=== PATIENT | female | born 1960 | race Caucasian/White ===

== ENCOUNTER → 2017-03-30 | Outpatient (CLI) | payer BC ==
[~2017-03-30] MED LIST: LISI-14 PO
--- NOTE | 2017-03-30 12:44 | DI ---
Indication: ITS.REASON: S83.206A MENISCUS TEAR, CURRENT INJURY, RIGHT KNEE PROCEDURE: MRI KNEE RIGHT W/O CONTRAST: Encounter: Initial Comparison: None Technique: Multiplanar multisequence MR imaging of the right knee was performed without contrast. Findings: Macerated degenerative tear of the lateral meniscus. Medial meniscus appears intact. The ACL and PCL are normal. The MCL and lateral collateral ligament complex are intact. The extensor mechanism is normal. No acute fracture. Subchondral edema in the lateral femoral condyle and lateral tibial plateau. Remaining bone marrow signal intensity is normal. The cartilage of the medial compartment is maintained. Lateral compartment cartilage shows areas of full-thickness loss. Patellofemoral compartment cartilage is intact. Small joint effusion. Moderate-sized Carson's cyst. Muscular signal intensity shows mild edema within the lateral gastrocnemius head. Impression: Degenerative lateral meniscal tear. .
== END ==
LOC: IMA 09:26
PROVIDERS: ATTEND Family Medicine
DX: M23.200 Derangement of unspecified lateral meniscus due to old tear or injury, right knee (principal); M25.461 Effusion, right knee; M71.21 Synovial cyst of popliteal space [Baker], right knee; Z91.81 History of falling

== ENCOUNTER → 2017-04-06 | Outpatient (CLI) | payer BC ==
--- NOTE | 2017-04-06 10:04 | DI ---
INDICATION: ITS.REASON: Z01.89 PRE-OP EXAM PROCEDURE: CHEST 2-VIEWS UPRIGHT (PA \T\ LAT) Encounter: Initial COMPARISON: None FINDINGS: The lungs are clear without evidence of focal abnormal airspace opacity. There is no pleural effusion or pneumothorax. The heart size, mediastinal contours and pulmonary vascularity are within normal limits. There is no significant skeletal abnormality. Minimal marginal hypertrophic spurring anteriorly. IMPRESSION: No acute cardiopulmonary disease. .
[2017-04-06 10:23] LABS: BASOPHILS # (AUTO) 0.1 T/MM3 (0-0.2); BASOPHILS % (AUTO) 0.6 % (0-2); EOSINOPHILS # (AUTO) 0.1 T/MM3 (0-0.5); EOSINOPHILS % (AUTO) 1.5 % (0-4); HCT - HEMATOCRIT 41.5 % (36-46); HGB - HEMOGLOBIN 13.8 GM/DL (12-16); IMMATURE GRANULOCYTE # (AUTO) 0.01 T/MM3 (0.00-0.03); IMMATURE GRANULOCYTE % (AUTO) 0.1 % (0.0-0.5); LYMPHOCYTES # (AUTO) 2.6 T/MM3 (1-4.8); LYMPHOCYTES % (AUTO) 32.1 % (23-45); MEAN CORPUSCULAR HGB 28.8 UUG (26-34); MEAN CORPUSCULAR HGB CONC(MCHC 33.3 GM/DL (31-37); MEAN CORPUSCULAR VOLUME 86.5 UM3 (80-100); MEAN PLATELET VOLUME 11.4 UM3 (9.4-12.4); MONOCYTES # (AUTO) 0.5 T/MM3 (0-0.8); MONOCYTES % (AUTO) 6.7 % (0-9.0); NEUTROPHILS #(AUTO)-ABSOLUTE 4.7 T/MM3 (1.8-7.7)
[2017-04-06 10:30] LABS: ANION GAP 13 MEQ/L (5-15); BUN/CREATININE RATIO 21 RATIO (6-26); CALCIUM 9.8 MG/DL (8.4-10.2); CHLORIDE 104 MEQ/L (98-107); CO2 - CARBON DIOXIDE 27 MEQ/L (22-30); CREATININE 0.9 MG/DL (0.7-1.2); GLOMERULAR FILTRATION RATE 65; GLUCOSE 101 MG/DL (65-110); POTASSIUM 4.2 MEQ/L (3.6-5); SODIUM 144 MEQ/L (134-144)
== END ==
LOC: IMA 09:17
PROVIDERS: ATTEND Family Medicine
DX: Z01.818 Encounter for other preprocedural examination (principal)
CPT/HCPCS: 36415; 80048; 85025; 93005